=== PATIENT | male | born 1955 | race Caucasian/White ===

== ENCOUNTER 2020-12-24 05:16 | Emergency (ER) | payer OTHER ==
[~2020-12-24] VITALS: Ht 182.9 cm; Wt 102.9 kg
[2020-12-24 06:21] VITALS: BP 181/102
== END 2020-12-24 06:24 | disposition home or self-care (01) ==
LOC: ER 05:18
DX: I10 Essential (primary) hypertension (principal)
CPT/HCPCS: 99281

== ENCOUNTER 2022-10-15 20:26 | Emergency (ER) | payer MEDICARE ==
[~2022-10-15] VITALS: Ht 182.9 cm; Wt 109.3 kg
[2022-10-15 20:51] LABS: BASOPHILS # (AUTO) 0.1 X10'3 (0-0.2); BASOPHILS % (AUTO) 0.9 % (0-1); EOSINOPHILS # (AUTO) 0.2 X10'3 (0-0.9); EOSINOPHILS % (AUTO) 1.7 % (0-6); HEMATOCRIT 50.3 % (42.0-52.0); HEMOGLOBIN 17.3 g/dl (14.0-17.9); LYMPHOCYTES # (AUTO) 2.4 X10'3 (1.1-4.8); LYMPHOCYTES % (AUTO) 27.6 % (21-51); MEAN CORPUSCULAR HGB CONC 34.4 g/dL (33.0-36.5); MEAN CORPUSCULAR VOLUME 89.9 FL (78-98); MEAN PLATELET VOLUME 8.2 FL (7.4-10.4); MONOCYTES # (AUTO) 0.7 X10'3 (0-0.9); MONOCYTES % (AUTO) 7.8 % (2-12); NEUTROPHILS # (AUTO) 5.4 X10'3 (1.8-7.7); PLATELET COUNT 201 X10'3 (140-440); RED BLOOD COUNT 5.59 X10'6 (4.70-6.10); RED CELL DISTRIBUTION WIDTH 13.4 % (11.5-14.5); WHITE BLOOD COUNT 8.8 X10'3 (4.5-11.0)
[2022-10-15 21:07] LABS: ALANINE AMINOTRANSFERASE 24 U/L (12-78); ALBUMIN 3.8 G/DL (3.4-5.0); ALBUMIN/GLOBULIN RATIO 0.9 (1.1-1.5); ALKALINE PHOSPHATASE 80 IU/L (46-116); ANION GAP 9 (8-16); ASPARTATE AMINO TRANSFERASE 17 U/L (10-37); BILIRUBIN,TOTAL 0.2 MG/DL (0.1-1.0); BLOOD UREA NITROGEN 15 MG/DL (7-18); BUN/CREATININE RATIO 16.9 (10.0-20.0); CALCIUM 8.4 MG/DL (8.5-10.1); CHLORIDE 102 MMOL/L (99-107); CREATININE 0.89 MG/DL (0.60-1.10); GLUCOSE 208 MG/DL (70-104); SODIUM 139 MMOL/L (135-145); TOTAL CARBON DIOXIDE 27.9 MMOL/L (24-32); TOTAL PROTEIN 8.2 G/DL (6.4-8.2); eGFR 86 ML/MIN
[2022-10-15 21:11] LABS: POTASSIUM 2.8 MMOL/L (3.5-5.1)
[2022-10-15] MEDS ORDERED: magnesium 2GM in 50ml NS 50 ML IV ONE (21:25)
[2022-10-15] MEDS ORDERED: potassium Cl 20 mEq SR tablet PO ONE (21:25)
[2022-10-15] MEDS ORDERED: potassium Cl 40MEQ/1/2NS 520ml 520 ML IV SCH (22:00)
--- NOTE | 2022-10-15 23:33 | NUR ---
Per provider, Pt self administered 5 mg amlodipine PO from home medication, for HTN. 171/106
[2022-10-15] MEDS ORDERED: POTA-192 PO (23:35)
[2022-10-15] MEDS ORDERED: ALBU8HFA PO (23:35)
[2022-10-16] MEDS ORDERED: potassium Cl 20 mEq SR tablet PO ONE (00:40)
[2022-10-16 02:11] LABS: ALBUMIN 3.3 G/DL (3.4-5.0); ANION GAP 5 (8-16); BLOOD UREA NITROGEN 16 MG/DL (7-18); BUN/CREATININE RATIO 20.8 (10.0-20.0); CALCIUM 8.1 MG/DL (8.5-10.1); CHLORIDE 105 MMOL/L (99-107); CREATININE 0.77 MG/DL (0.60-1.10); GLUCOSE 94 MG/DL (70-104); POTASSIUM 3.6 MMOL/L (3.5-5.1); SODIUM 139 MMOL/L (135-145); TOTAL CARBON DIOXIDE 29.2 MMOL/L (24-32); eGFR > 90 ML/MIN
[2022-10-16 02:31] VITALS: BP 157/104
== END 2022-10-16 02:36 | disposition home or self-care (01) ==
LOC: ER 20:26
DX: R06.02 Shortness of breath (principal); E86.0 Dehydration
CPT/HCPCS: 36415; 71045; 80048; 80053; 83880; 84484; 85025; 93005; 96365; 96368; 99285; J3475; J3480; J7030; 96360